=== PATIENT | male | born 1985 | race African-American/Black ===

== ENCOUNTER 2019-05-17 09:40 | Outpatient (CLI) | payer OTHER | END 2019-05-17 22:39 | disposition home or self-care (01) | LOC: RAD 09:40 | DX: N39.0 Urinary tract infection, site not specified (principal); N50.812 Left testicular pain; M54.9 Dorsalgia, unspecified; R10.9 Unspecified abdominal pain; E11.9 Type 2 diabetes mellitus without complications; M25.512 Pain in left shoulder ==